=== PATIENT | female | born 1990 | race Caucasian/White ===

== ENCOUNTER 2019-03-08 11:24 | Emergency (ER) | payer MEDICAID, OTHER ==
[~2019-03-08] VITALS: Ht 152 cm; Wt 79.4 kg
--- NOTE | 2019-03-08 11:33 | ED EENT ---
History of Present Illness General Chief Complaint: Dental Problems/Pain Stated Complaint: DENTAL PAIN Source: patient History of Present Illness Date Seen by Provider: Mar 08, 2019 Time Seen by Provider: 11:32 Initial Comments 28-year-old female presents with dental pain. She reports it started about 3 or 4 days ago and thinks it is infected. She has some swelling of her lower gums. She has a appointment with the dentist in 2 days. She feels a supine reason antibiotics that she thinks is infected. She Nuys any fevers, chills, nausea or vomiting. Allergies and Home Medications Allergies Coded Allergies: No Known Drug Allergies (Unverified , 03/08/19) Home Medications Amoxicillin 500 Mg Capsule, 500 MG PO TID Prescribed by: CARMEN AMBROSE on 03/08/19 1141 Patient Home Medication List Home Medication List Reviewed: Yes Review of Systems Review of Systems Constitutional: No chills, No fever Eyes: No Symptoms Reported Nose: no symptoms reported Mouth: see HPI Throat: no symptoms reported Respiratory: no symptoms reported Cardiovascular: no symptoms reported Gastrointestinal: no symptoms reported Past Livbpgp-Xrrmcq-Vjeudc Hx Past Med/Social Hx: Reviewed Nursing Past Med/Soc Hx Physical Exam Vital Signs Vital Signs - First Documented 03/08/19 11:41 Temp 36.2 Pulse 74 Resp 16 B/P (MAP) 146/85 (105) Pulse Ox 96 Height, Weight, BMI Height: '" Weight: lbs. oz. kg; BMI Method: General Appearance: WD/WN, no apparent distress Eyes: bilateral eye normal inspection Nose: normal inspection Mouth/Throat: dental tenderness, other (mild swelling of the left lower gum but no obvious or palpable abscess or drainage. There is a fractured tooth.) Neck: non-tender Cardiovascular: normal peripheral pulses, regular rate, rhythm Respiratory: lungs clear, normal breath sounds Neurologic/Psychiatric: assembler movement II-XII nml as tested, oriented x 3 Skin: normal color Progress/Results/Core Measures Results/Orders Vital Signs/I&O 03/08/19 03/08/19 11:41 11:45 Temp 36.2 36.2 Pulse 74 74 Resp 16 16 B/P (MAP) 146/85 (105) 146/85 (105) Pulse Ox 96 96 Departure Impression Primary Impression: Pain, dental Additional Impression: Dental infection Disposition: 01 HOME, SELF-CARE Condition: Stable Departure-Patient Inst. Referrals: NO,LOCAL PHYSICIAN (PCP/Family) Primary Care Physician Patient Instructions: Fractured Tooth (DC), Dental Pain (DC) Scripts Amoxicillin (Amoxicillin) 500 Mg Capsule 500 MG PO TID, #21 CAP 0 Refills Prov: CARMEN AMBROSE DO 03/08/19 CARMEN AMBROSE DO Mar 08, 2019 11:32
[2019-03-08] MEDS ORDERED: AMOX500C2 PO (11:41)
[2019-03-08 11:45] VITALS: BP 146/85
== END 2019-03-08 11:45 | disposition home or self-care (01) ==
LOC: ER FS 11:26
DX: K04.7 Periapical abscess without sinus (principal)
CPT/HCPCS: 99282